=== PATIENT | female | born 1975 | race Caucasian/White ===

== ENCOUNTER 2017-06-05 15:01 | Emergency (ER) | payer SELFPAY ==
[2017-06-05 15:18] VITALS: BP 129/68; BMI 33.2
--- NOTE | 2017-06-05 15:59 | DR.EXTPAIN ---
HPI - Time seen Time seen: 15:55 - PCP Primary Care Physician: JAZZY VALENZUELA - HPI Comment HPI Comment: ELBOW SWOLLEN AND PATIENT HAVING DIFFICULTY EXTENDING ELBOW. NO OTHER INJURY REPORTED. - Complaint/Symptoms Chief Complaint Doctor Comments: INJURY LEFT ELBOW TIMES ONE DAY. Chief Complaint:: FELL YESTERDAY DIRECTLY ONTO LEFT ELBOW. 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, Hysterectomy, Ortho Surgery, Tonsillectomy Past Surgical History Comment: CARPAL TUNNEL - Family History History of Family Medical Conditions: Yes Family Medical History: Diabetes Mellitus, Cancer, [place], Coronary Artery Disease, Heart Failure, Hypertension - Social History Type of Tobacco Use: Cigarettes Alcohol Use: None Do you use any recreational Drugs:: No Lives With: Family Lives Where: Home - infectious screening In the last 2 months have you had wt loss of >10#?: YES Have you had fever, night sweats or hemotysis?: No Have you traveled outside the country in the last 6 months?: No Isolation: Standard ROS - Review of Systems Constitutional: No Symptoms Reported Eyes: No Symptoms Reported ENTM: No Symptoms Reported Respiratoy: No Symptoms Reported Cardiovascular: No Symptoms Reported Gastrointestinal/Abdominal: No Symptoms Reported Genitourinary: No Symptoms Reported Neurological: No Symptoms Reported Musculoskeletal: Left, Elbow Integumentary: Bruises Hematologic/Lymphatic: No Symptoms Reported Endocrine: No Symptoms Reported All Other Systems: Reviewed and Negative PE - Vital Signs Vitals: Temperature 98.4 F Pulse Rate 86 Respiratory Rate 18 Blood Pressure 129/68 O2 Sat by Pulse Oximetry 96 - General Limitations: No Limitations General Appearance: Alert - Head Head Exam: Normal Inspection - Eyes Eye exam: Normal Appearance - ENT ENT Exam: Normal External Ear Exam - Neck Neck Exam: Trachea Midline - Chest Chest Inspection: Symmetric Chest Wall Rise - Respiratory Respiratory Exam: Normal Lung Sounds Bilat Respiratory Exam: Bilateral Clear to Auscultation - Cardiovascular Cardiovascular Exam: Regular Rate, Normal Rhythm, Normal Heart Sounds - Abdominal Exam Abdominal Exam: Normal Inspection - Extremities Extremities Exam: Tenderness (TENDERNESS LEFT ELBOW.), Joint Swelling (SWELLING AND TENDERNESS LEFT ELBOW.) - Back Back Exam: Normal Inspection - Neurological Neurological Exam: Alert, Oriented X3 - Psychiatric Psychiatric Exam: Normal Mood - Skin Skin Exam: Erythema MDM - Differential Diagnosis Differential Diagnosis: Contusion, Fracture, Sprain Course - Treatment Treatment: SEE ORDERS. ARM SLING PLACE IN ED. - Education/Counseling Education/Counseling: Patient, Education Educated On: Diagnosis, Needs for Follow Up ROR - XRAY XRAY Interpreted by: Radiologist XRAY Findings: REPORT DISCUSS WITH PATIENT. - Diagnosis Discharge Problem: Sprain of elbow, left Qualifiers: Encounter type: initial encounter Qualified Code(s): S53.402A - Unspecified sprain of left elbow, initial encounter Contusion of elbow, left Qualifiers: Encounter type: initial encounter Qualified Code(s): S50.02XA - Contusion of left elbow, initial encounter - Discharge Plan Disposition: HOME, SELF-CARE Condition: Stable Prescriptions: Ibuprofen [Motrin Tab 800 mg] 800 mg PO Q8H PRN #20 tab PRN Reason: Pain/Inflammation Tramadol HCl 50 mg PO TID PRN #15 tablet PRN Reason: - Follow ups/Referrals Follow ups/Referrals: NFD,None [Primary Care Provider] - 1 day Andrzej Aguilar [STAFF PHYSICIAN] - 3 days - Instructions Instructions: Elbow Contusion, [id number] Additional Instructions: RETURN TO ED IF WORSE.
--- NOTE | 2017-06-05 17:12 | RAD ---
HISTORY: Pain Study: Left elbow series Comparison: None Findings: No acute cortical disruption or dislocation is identified. No significant joint space effusion can be seen. The radial head is unremarkable in its appearance. IMPRESSION: 1. Negative exam. Reported By:
== END 2017-06-05 17:28 | disposition home or self-care (01) ==
LOC: ER 15:41
DX: S53.402A Unspecified sprain of left elbow, initial encounter (principal); S50.02XA Contusion of left elbow, initial encounter; W19.XXXA Unspecified fall, initial encounter; Y92.9 Unspecified place or not applicable
CPT/HCPCS: 73070; 99282; 99283

== ENCOUNTER 2017-10-07 20:38 | Emergency (ER) | payer SELFPAY ==
[2017-10-07 20:44] VITALS: BMI 33.7
[2017-10-08] MEDS ORDERED: XYLOCAINE VISCOUS MT STA (00:31)
[2017-10-08] MEDS ORDERED: MOTRIN TAB 800 MG PO STA (00:31)
[2017-10-08] MEDS ORDERED: MOTRIN TAB 800 MG PO ONE (00:36)
--- NOTE | 2017-10-08 00:36 | DR.GENAD ---
HPI - Complaint/Symptoms Chief Complaint Doctors Comments: Patient states she had her right upper wisdom teeth removed three years ago by an oral surgeon and she has been having right jaw pain and problems chewing due to the pain. States she has been using OTC medicines, orajel. Anusol and the new preparations without improvement. states the pain is so severe she only sleeps a few hours at night. States she went back to doctor that did her surgery and he told her he damaged a nerve and there was nothing he could do. states she had not seen her local doctor in a while and she does not usually go the the [facility] unless she is extremely sick. she denies fever, chills, cold or cough. State the pain is 10 of 10. Requesting Magic mouth wash because someone told her it may work. Chief Complaint:: PT STATES THAT SHE HAD HER LT UPPER WISOM TOOTH REMOVED 3 YEARS AGO. STATES THAT 3 WEEKS AGO IT BECAME SWOLLEN AND HURTING. PT SAW DENTIST ON MONDAY AND PT STATES DENTIST SAID "I DAMAGED A NERVE REMOVING THE TOOTH AND YOU WILL JUST HAVE TO DEAL WITH" Self Treatment fo Chief Complaint: PT STATES SHE HAS BEEN PUTTING ICE ON IT AND TAKING SOME LEFT OVER BACTRIM, CIPRO, AND KEFLEX - Nurses notes reviewed Nurses Notes Review: Yes - Source History Provided: Patient - Mode of Arrival Mode of Arrival: Ambulatory - Timing Onset of Chief Complaint: 09/07/17 Came on: Gradually - Duration Duration: Intermittent How lon Duration: Weeks - Location Location: right upper molar pain - Severity Severity: Moderate - Modifying Factors Worsens:: eating and chewing Improves:: nothing PMH - PMH Past Medical History: Yes Past Medical History: COPD, Migraines, Hypertension Past Surgical History: Yes Surgical History: CABG/Valve Surgery, 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 negative: See HPI, Chills, Diaphoresis, Fever, Malaise, Weakness, Irritable, Fatigue, Loss of Appetite, Other Eyes: No Symptoms Reported ENTM: No Symptoms Reported Respiratoy: No Symptoms Reported Cardiovascular: No Symptoms Reported Gastrointestinal/Abdominal: No Symptoms Reported Genitourinary: No Symptoms Reported Neurological: No Symptoms Reported Musculoskeletal: No Symptoms Reported Integumentary: No Symptoms Reported Hematologic/Lymphatic: No Symptoms Reported Endocrine: No Symptoms Reported Psychiatric: No Symptoms Reported PE - Vital Signs Vitals: Temperature 98.7 F Pulse Rate 78 Respiratory Rate 18 Blood Pressure 160/82 O2 Sat by Pulse Oximetry 100 - General Limitations: No Limitations General Appearance: Alert, In No Apparent Distress - Head Head Exam: Normal Inspection, Atraumatic, Normocephalic - Eyes Eye exam: Normal Appearance, PERRL, EOMI. negative: Scleral Icterus, Conjunctival Injection, Nystagmus, Miosis, Mydrasis, Periorbital Swelling, Periorbital Tenderness, Other - ENT ENT Exam: Normal Exam, Normal Oropharynx, Normal External Ear Exam, Mucous Membranes Moist, TM's Normal Bilaterally External Ear Exam: Normal External Inspection TM/Canal Exam: Bilateral Normal Nose Exam: Normal Nose Exam Mouth Exam: Normal Inspection (well healed right upper molar gum, irregular; no swelling or erythema; no discharge). negative: Drooling, Trismus, Lip Swelling , Tongue Elevation, Tongue Swelling, Laceration, Other Throat Exam: Normal Inspection - Neck Neck Exam: Normal Inspection, Full ROM, Trachea Midline. negative: Tenderness, Meningismus, Lymphadenopathy, Thyromegaly, Other - Chest Chest Inspection: Normal Inspection, Symmetric Chest Wall Rise - Respiratory Respiratory Exam: Normal Lung Sounds Bilat Respiratory Exam: Bilateral Clear to Auscultation - Cardiovascular Cardiovascular Exam: Regular Rate, Normal Rhythm, Normal Heart Sounds - Abdominal Exam Abdominal Exam: Normal Inspection, Normal Bowel Sounds, Soft Abdominal Tenderness: negative: RUQ, RLQ, LUQ, LLQ, Epigastrium, Suprapubic, Diffuse, Mild, Moderate, Severe, Other - Extremities Extremities Exam: Normal Inspection, Full ROM, Normal Capillary Refill. negative: Tenderness, Edema, Joint Swelling, Calf Tenderness, Other - Back Back Exam: Normal Inspection, Full ROM. negative: Tenderness, (R) CVA Tenderness, (L) CVA Tenderness, Muscle Spasm, Paraspinal Tenderness, Vertebral Tenderness, Rashes, (R) Sciatic Notch Tenderness, (L) Sciatic Notch Tendern, (R ) Straight Leg Raise, (L) Straight Leg Raise, Other - Neurologic Neurological Exam: Alert, Oriented X3, CN II-XII Intact, Normal Gait, Reflexes Normal - Psychiatric Psychiatric Exam: Normal Affect, Normal Mood - Skin Skin Exam: Warm, Dry, Intact, Normal Color - Diagnosis Discharge Problem: Chronic dental pain, Pain in gums, Toothache - Discharge Plan Disposition: 01 HOME, SELF-CARE Condition: Stable Prescriptions: Ibuprofen [MOTRIN TAB 800 MG *] 800 mg PO BID PRN #30 tab PRN Reason: Pain/Inflammation Lidocaine/Benadryl/Maalox [Magic Mouthwash] 5 ml MT TID PRN #6 btl PRN Reason: - Follow ups/Referrals Follow ups/Referrals: NFD,None [Primary Care Provider] - 3 days JUDITH SILVA [STAFF PHYSICIAN] - 3 days - Instructions Instructions: Dental Dry Socket, Tooth Injuries, [id number], Dental Caries
[2017-10-08 00:55] VITALS: BP 152/80
== END 2017-10-08 00:50 | disposition home or self-care (01) ==
LOC: ER 20:38
DX: K08.89 Other specified disorders of teeth and supporting structures (principal)
CPT/HCPCS: 99282